=== PATIENT | male | born 1955 | race Caucasian/White ===

== ENCOUNTER 2016-12-29 07:06 | Day surgery (SDC) | payer BC ==
--- NOTE | ~2016-12-29 | EGD ---
EGD REPORT [facility] [address] [id number] NAME: KIP COOLEY : [birth year] STATUS : REG [facility]#: [id number] AGE: 61 ADM/REG DATE : 12/29/16 MR#: [id number] REPORT SERV DATE: 12/29/16 DICTATED BY: JOSE GONZALEZ DATE: 12/29/16 REPORT STATUS : Draft [facility] BY: [facility] DATE: 12/29/16 [facility] Center Patient Name: Kip Cooley Date of : 1955 Attending MD: JOSE GONZALEZ MD Procedure Date No Time: 12/29/2016 Procedure: Colonoscopy Indications: Screening for colorectal malignant neoplasm Referring MD: TOBI ROBLERO MD Medicines: Propofol per Anesthesia Complications: No immediate complications. Procedure: Pre-Anesthesia Assessment: - ASA Grade Assessment: III - A patient with severe systemic disease. After I obtained informed consent, the scope was passed under direct vision. Throughout the procedure, the patient's blood pressure, pulse, and oxygen saturations were monitored continuously. The PCF [id number] was introduced through the anus and advanced to the terminal ileum. The colonoscopy was performed without difficulty. The patient tolerated the procedure well. The quality of the bowel preparation was excellent. Findings: The terminal ileum appeared normal. A sessile polyp was found in the mid ascending colon. The polyp was 5 mm in size. The polyp was removed with a jumbo cold forceps. Resection and retrieval were complete. Multiple medium-mouthed diverticula were found in the sigmoid colon. The retroflexed view of the distal rectum and anal verge was normal and showed no anal or rectal abnormalities. Impression: - The examined portion of the ileum was normal. - One 5 mm polyp in the mid ascending colon. Resected and retrieved. - Diverticulosis in the sigmoid colon. Recommendation: - The patient will be observed post-procedure, until all discharge criteria are met. - Return to previous diet today. - Continue present medications. - Resume Xarelto (rivaroxaban) at prior dose today. Refer to managing physician for further adjustment of therapy. - The findings and recommendations were discussed with EGD REPORT [address] [place]. [address] NAME: KIP COOLEY : 53 STATUS : REG [facility] PAT#: [id number] AGE: 61 ADM/REG DATE : 12/29/16 MR#: [id number] REPORT SERV DATE: 12/29/16 DICTATED BY: JOSE GONZALEZ DATE: 12/29/16 REPORT STATUS : Draft TRANSCRIBED BY: [employer] DATE: 12/29/16 the patient and their family. - After the procedure, if you experience any pain in abdomen or chest,shortness of breath,fever,chills,blood in stool,rectal bleeding,vomiting of any material,nausea,black stools or weakness or dizziness, GO TO THE EMERGENCY IMMEDIATELY!!!!!!!!! Procedure Code(s): --- Professional --- 62262, Colonoscopy, flexible, proximal to splenic flexure; with biopsy, single or multiple Diagnosis Code(s): --- Professional --- K57.30, Diverticulosis of large intestine without perforation or abscess without bleeding D12.2, Benign neoplasm of ascending colon Z12.11, Encounter for screening for malignant neoplasm of colon CPT copyright 2013 [employer]. All rights reserved. The codes documented in this report are preliminary and upon cost recovery technician review may be revised to meet current compliance requirements. Jose Gonzalez MD JOSE GONZALEZ MD 12/29/2016 9:43 AM This report has been signed electronically. Number of Addenda: 0 Note Initiated On: 12/29/2016 9:11 AM Scope Withdrawal Time 0 hours 15 minutes 37 seconds [id number] [place] [id number]
[~2016-12-29 07:06] MED LIST: ACET500CAP PO; ANDROGEL 1% T; AVALIDE1 TA2 PO; AXIRON90 ML TOP; C1; C25 PO; C5; C5 PO; ELIQUIS 5 MG TAB5 MG PO; FLEX PO; FOLAMIN PO; GLUCOPHAGE1000 MG PO; INSPRA50 MG PO; LEVAQUIN750 MG PO; LEVOTHROID175 MCG PO; NORCO1 TA1 PO; NORV10 PO; PCET PO; PERCOCET1 TA2 PO; PRAV10 PO; RYTHMOL150 MG PO; SYN.15 PO; SYNTHROID175 MCG PO
== END 2016-12-29 23:59 | disposition home health service (06) ==
LOC: DMU 07:06
PROVIDERS: Internal Medicine Gastroenterology
PROC: 0DBK8ZX Excision of Ascending Colon, Via Natural or Artificial Opening Endoscopic, Diagnostic (ICD-10-PCS; principal; 2016-12-29 08:00)
DX: Z12.11 Encounter for screening for malignant neoplasm of colon (principal); D12.2 Benign neoplasm of ascending colon; K57.30 Diverticulosis of large intestine without perforation or abscess without bleeding; E66.01 Morbid (severe) obesity due to excess calories; I10 Essential (primary) hypertension; E03.9 Hypothyroidism, unspecified; E11.9 Type 2 diabetes mellitus without complications; I48.91 Unspecified atrial fibrillation; F17.210 Nicotine dependence, cigarettes, uncomplicated; G47.30 Sleep apnea, unspecified; M19.90 Unspecified osteoarthritis, unspecified site; Z90.49 Acquired absence of other specified parts of digestive tract; Z99.81 Dependence on supplemental oxygen; Z98.890 Other specified postprocedural states
CPT/HCPCS: 82962; 88305; A9270-GY

== ENCOUNTER 2017-03-15 22:35 | Emergency (ER) | payer BC ==
[2017-03-16 01:16] LABS: BASOPHILS 0.2 %; BASOPHILS ABSOLUTE 0.03 10/3/uL (0.0-0.16); EOSINOPHILS 1.7 %; EOSINOPHILS ABSOLUTE 0.29 10/3/uL (0.0-0.53); HEMOGLOBIN 16.4 g/dL (13.6-17.8); IMMATURE GRANULOCYTES 0.3 %; IMMATURE GRANULOCYTES ABSOLUTE 0.05 10/3/uL (0.0-0.11); LYMPHOCYTES 13.6 %; LYMPHOCYTES ABSOLUTE 2.32 10/3/uL (0.67-4.30); MEAN CORPUSCULAR HEMOGLOB 32.2 pg (26.0-34.0); MEAN PLATELET VOLUME 9.2 fL (9.2-13.0); MONOCYTES 8.6 %; MONOCYTES ABSOLUTE 1.47 10/3/uL (0.21-1.20); NEUTROPHILS 75.6 %; NEUTROPHILS ABSOLUTE 12.85 10/3/uL (2.02-8.40); PLATELET COUNT 202 10/3/uL (150-400); RBC DISTRIBUTION WIDTH 13.4 % (12.0-16.0); RED CELL COUNT 5.09 10/6/uL (4.7-6.1)
[2017-03-16 01:18] LABS: HEMATOCRIT 46.8 % (40.0-51.0); MEAN CORPUSCULAR VOLUME 91.9 fL (80-100)
[2017-03-16 01:19] LABS: MANUAL DIFF NO %
[2017-03-16 01:26] LABS: INTERNATIONAL NORMAL RATI 1.1 UNITS (-); PARTIAL THROMBO TIME 28.9 SEC (22.5-37.2)
[2017-03-16 01:27] LABS: PROTIME (NOT ORD) 13.7 SEC (12.0-14.5)
[2017-03-16 01:35] LABS: BUN (BLOOD UREA NITROGEN) 12 MG/DL (6-23); CHEST PAIN PROFILE TAT 0 Hrs 23 Mins; CHLORIDE, SERUM 108 MMOL/L (96-112); CO2 (CARBON DIOXIDE) 25 MMOL/L (24-34); GFR AFRICAN AMERICAN 83 ML/MIN (>=60); GFR NON AFRICAN AMERICAN 72 ML/MIN (>=60); GLUCOSE, SERUM 112 MG/DL (60-99); POTASSIUM, SERUM 3.9 MMOL/L (3.5-5.3); SODIUM, SERUM 140 MMOL/L (135-148); TROPONIN I <0.02 NG/ML (<0.05)
== END 2017-03-16 02:34 | disposition home or self-care (01) ==
LOC: ER 22:35
PROVIDERS: Emergency Medicine
DX: M54.12 Radiculopathy, cervical region (principal); R07.9 Chest pain, unspecified; D72.829 Elevated white blood cell count, unspecified; I48.91 Unspecified atrial fibrillation; Z79.84 Long term (current) use of oral hypoglycemic drugs; Z79.899 Other long term (current) drug therapy
CPT/HCPCS: 71010; 80048; 83735; 84484; 85025; 85610; 85730; 93005; 96374; 96375; 99284; A9270-GY; J2405